=== PATIENT | female | born 1990 | race African-American/Black ===

== ENCOUNTER 2019-06-03 01:49 | Emergency (ER) | payer MEDICAID ==
[~2019-06-03] VITALS: Ht 165.1 cm; Wt 90.0 kg
[2019-06-03 02:25] VITALS: BP 137/92
== END 2019-06-03 03:31 | disposition home or self-care (01) ==
LOC: EMS 01:50
DX: J40 Bronchitis, not specified as acute or chronic (principal); F12.90 Cannabis use, unspecified, uncomplicated; Z79.899 Other long term (current) drug therapy